=== PATIENT | female | born 1945 | race Caucasian/White ===

== ENCOUNTER 2022-07-10 12:27 | Outpatient (CLI) | payer MEDICARE, BC, SELFPAY | END 2022-07-10 12:28 | disposition home or self-care (01) | LOC: NFLDREF 12:29 | PROVIDERS: PCP Family Medicine; Visit Provider Obstetrics & Gynecology | DX: N89.8 Other specified noninflammatory disorders of vagina (principal) | CPT/HCPCS: 87086 ==

== ENCOUNTER 2022-10-07 18:27 | Emergency (ER) | payer MEDICARE, BC, SELFPAY ==
[2022-10-07 18:42] VITALS: BP 156/64; PULSE 60; RESP 14; TEMP 36.2; O2SAT 93; BMI 33.8
--- NOTE | 2022-10-07 18:54 | CRLHL7_ITS ---
For Patients: As a result of the Cures Act, medical imaging exams and procedure reports are released immediately into your electronic medical record. You may view this report before your referring provider. If you have questions, please contact your health care provider. Indication: Fall with low back pain. Technique: Pelvis 1 views. Comparison: None. Findings: Bones: Alignment is normal. No fractures or bone lesions. No sign of acute injury. Joint spaces: Unremarkable. Soft tissues: Unremarkable. Dictated by Krunal Hanna MD @ 10/07/2022 8:32:45 PM (Electronically Signed)
--- NOTE | 2022-10-07 18:54 | CRLHL7_ITS ---
For Patients: As a result of the Cures Act, medical imaging exams and procedure reports are released immediately into your electronic medical record. You may view this report before your referring provider. If you have questions, please contact your health care provider. Indication: Fall, injury and pain. Technique: Left clavicle 2 views. Comparison: None. Findings/Impression: Bones: Alignment is normal. No fractures or bone lesions. No sign of acute injury. Joint spaces: Unremarkable. Soft tissues: Unremarkable. Dictated by Krunal Hanna MD @ 10/07/2022 8:34:24 PM (Electronically Signed)
--- NOTE | 2022-10-07 18:54 | CRLHL7_ITS ---
For Patients: As a result of the Century Cures Act, medical imaging exams and procedure reports are released immediately into your electronic medical record. You may view this report before your referring provider. If you have questions, please contact your health care provider. INDICATION: Fall with lower back pain. TECHNIQUE: Lumbar spine 3 view. COMPARISON: 10/03/2016. FINDINGS: Bones: Alignment is normal. No fractures or significant bone lesions. No sign of acute injury. Joints: Disc spaces and facets are unremarkable for age. Soft tissues: Unremarkable. Dictated by Krunal Hanna MD @ 10/07/2022 8:30:55 PM (Electronically Signed)
--- NOTE | 2022-10-07 18:55 | CRLHL7_ITS ---
For Patients: As a result of the Century Cures Act, medical imaging exams and procedure reports are released immediately into your electronic medical record. You may view this report before your referring provider. If you have questions, please contact your health care provider. Indication: Neck pain, fall Technique: Volumetric multidetector CT images of the cervical spine were obtained without the administration of IV contrast. Comparison: None available. Findings: The cervical vertebral body heights are grossly maintained. There is anterolisthesis of C2 on C3, C3 on C4 and C4 on C5. There is no displaced fracture or dislocation. There is moderate multilevel degenerative disc disease with disc height loss and marginal osteophyte formation. There is severe facet arthrosis and degenerative change of the atlantoaxial joint. The paraspinous soft tissues are grossly within normal limits. Impression: Moderate degenerative changes of the cervical spine without acute osseous abnormality. Please note that all CT scans at this facility use dose modulation, iterative reconstruction, and/or weight-based dosing when appropriate to reduce radiation dose to as low as reasonably achievable. Dictated by Jorge Landeros MD @ 10/07/2022 8:13:50 PM (Electronically Signed)
--- NOTE | 2022-10-07 18:56 | ED.FALL ---
HPI - Fall General Chief Complaint: Fall/Minor Trauma Stated Complaint: Fell Time Seen by Provider: 10/07/22 18:48 History of Present Illness HPI Narrative: This 77-year-old female comes in by ambulance for evaluation of a fall that occurred just prior to arrival. She was walking out of a store and tripped on her own legs and fell onto her left side and rolled over to her back. She states that she bumped her head but did not have loss of consciousness. She is complaining of pain in the left clavicle region in the left side of her neck. She also has some pain in her low back. She is not on any blood thinners. Related Data Home Medications Medication Instructions Recorded Confirmed acetaminophen 325 mg capsule 325 mg PO ONCE PRN 07/10/22 08/23/22 (Tylenol) atorvastatin 20 mg tablet 20 mg PO 07/10/22 08/23/22 hydrochlorothiazide 25 mg tablet 25 mg PO 07/10/22 08/23/22 ibuprofen 200 mg tablet (Advil) 200 mg PO Q6H PRN 07/10/22 08/23/22 omeprazole 40 mg capsule,delayed 40 mg PO 07/10/22 08/23/22 release Previous Rx's Medication Instructions Recorded clobetasol 0.05 % topical ointment 1 applic topical QHS 4 weeks #15 07/10/22 grams estradiol 0.01% (0.1 mg/gram) 0.5 g vaginal 2XW #42.5 grams 07/31/22 vaginal cream (Estrace) Allergies Allergy/AdvReac Type Severity Reaction Status Date / Time Oxycodone AdvReac Mild Hallucinati Uncoded 08/23/22 10:24 ng Review of Systems Status of ROS: Reports: 10 or more systems reviewed and unremarkable except as noted in History and below Narrative: Constitutional: No fevers, no weight gain or loss. Eyes: No discharge. No vision changes. HENT: No congestion, no sore throat, no ear pain. Cardiovascular: No chest pain, no palpitations. Respiratory: No shortness of breath, no wheezes, no cough. Gastrointestinal: No abdominal pain, no vomiting, no diarrhea. Genitourinary: No dysuria, no hematuria. Musculoskeletal: Pain in the left clavicle and left side of the neck. Pain in the low back. Skin: No rashes, no pruritis. Neurological: No dizziness, weakness, sensory change, speech change. Endo/Heme/Allergies: No bruising or bleeding. No polydipsia. Pysch: no suicidality, no anxiety, no insomnia. All other systems reviewed and are negative. [facility] Medical History (Updated 10/07/22 @ 20:51 by Alexander Dickson MD) High blood cholesterol Osteoarthritis Reflux gastritis Surgical History (Updated 07/13/22 @ 10:09 by Naomi Kim MD) H/O hysterectomy for benign disease Previous section Family History (Updated 07/13/22 @ 10:09 by Naomi Kim MD) Other Colon cancer Heart disease High blood pressure High cholesterol Stroke Social History (Updated 07/13/22 @ 10:10 by Naomi Kim MD) Narrative: She works as an educator. She has a college education. She doesn't exercise regularly, but does some stretching and walking. She doesn't smoke or use recreational drugs. She occasionally drinks alcohol. Smoking Status: Never smoker How often do you have a drink containing alcohol: monthly or less AUDIT-C Alcohol total score: 1 Non-prescribed substance use: denies use Exam Narrative: Exam Narrative: Constitutional: Well-developed, well-nourished, no acute distress. HEENT: Normocephalic, atraumatic. Neck: Normal range of motion. Nontender. Supple. Heart: Regular. No murmurs. Normal rate. Intact distal pulses. Lungs: Clear to auscultation. No chest discomfort. No wheezes, rhonchi, or rales. Abdomen: Normal bowel sounds. Nontender. No rebound tenderness. Genitalia: Deferred. Back: Pain in the right lumbar region. Extremities: No was sign of deformity in the left clavicle. Diffuse tenderness in this area and the left side of her neck. Pain with lateral stress of her pelvis. Skin: Intact. No rash. Warm. No erythema or pallor. Neurologic: No altered sensation. No weakness. Alert and oriented. Psychiatric: No suicidality. No anxiety or depression. No insomnia. Nursing notes and vitals signs are reviewed. Const: Vital Signs, click to edit/add: Vital Signs - 24 hr 10/07/22 18:42 Temperature 97.2 F L Pulse Rate [Pulse Oximeter] 60 Respiratory Rate 14 Blood Pressure [Ri ght Upper Arm] 156/64 H Pulse Oximetry 93 Oxygen Delivery Me thod Room Air Course Vital Signs Vital signs: Initial Vital Signs Temperature 97.2 F L 10/07/22 18:42 Temperature Source Temporal Artery Scan 10/07/22 18:42 Pulse Rate 60 10/07/22 18:42 Pulse Rhythm 10/07/22 18:42 Respiratory Rate 14 10/07/22 18:42 Blood Pressure 156/64 H 10/07/22 18:42 Blood Pressure Mean 94 10/07/22 18:42 Blood Pressure Position Sitting 10/07/22 18:42 Pulse Oximetry 93 10/07/22 18:42 Oxygen Delivery Method 10/07/22 18:42 Vital Signs Temperature 97.2 F L 10/07/22 18:42 Pulse Rate 60 10/07/22 18:42 Respiratory Rate 14 10/07/22 18:42 Blood Pressure 156/64 H 10/07/22 18:42 Pulse Oximetry 93 10/07/22 18:42 Oxygen Delivery Method 10/07/22 18:42 Temperature 97.2 F L 10/07/22 18:42 Pulse Rate 60 10/07/22 18:42 Respiratory Rate 14 10/07/22 18:42 Blood Pressure 156/64 H 10/07/22 18:42 Pulse Oximetry 93 10/07/22 18:42 Oxygen Delivery Method 10/07/22 18:42 MDM - Fall MDM Narrative Medical decision making narrative: This patient comes in for evaluation of injuries from a fall that occurred just prior to arrival. She is complaining of pain in her left clavicle and in her right lumbar and pelvis area. She was offered pain medicine which she declined. She states that when she lays still she feels okay. She did receive Zofran 4 mg for nausea. That helped those symptoms. CT and x-ray imaging return with no acute findings. This was reassuring to the patient. She was able to get up and ambulate and is okay to be discharged home. Imaging Data CT Cervical Spine: Radiologist's impression: Moderate degenerative changes of the cervical spine without acute osseous abnormality. XR L Clavicle: Radiologist's impression: Findings/Impression: Bones: Alignment is normal. No fractures or bone lesions. No sign of acute injury. Joint spaces: Unremarkable. Soft tissues: Unremarkable. XR Lumbar Spine: Radiologist's impression: Bones: Alignment is normal. No fractures or significant bone lesions. No sign of acute injury. Joints: Disc spaces and facets are unremarkable for age. Soft tissues: Unremarkable. XR Pelvis: Radiologist's impression: Bones: Alignment is normal. No fractures or bone lesions. No sign of acute injury. Joint spaces: Unremarkable. Soft tissues: Unremarkable. Discharge Plan Discharge Clinical Impression: Contusion of multiple sites Patient Disposition: Home w/ Parent or Adult Condition: Stable Additional Instructions: Use over the counter medications as needed and indicated. Activity as tolerated. Follow up with MD as needed or return if worsening. Prescriptions: No Action atorvastatin 20 mg tablet 20 mg PO hydrochlorothiazide 25 mg tablet 25 mg PO Label Comments: TAKE 1 TABLET BY MOUTH DAILY omeprazole 40 mg capsule,delayed release(DR/EC) 40 mg PO Label Comments: TAKE 1 CAPSULE BY MOUTH DAILY ibuprofen [Advil] 200 mg tablet 200 mg PO Q6H PRN acetaminophen [Tylenol] 325 mg capsule 325 mg PO ONCE PRN clobetasol 0.05 % ointment 1 applic topical QHS 28 Days Qty: 15 2RF estradiol [Estrace] 0.01 % (0.1 mg/gram) cream 0.5 g vaginal 2XW Qty: 42.5 3RF Rx Instructions: Use nightly for 2 weeks, then twice weekly. May apply with finger. Follow Up/Referrals: Meka Daniel MD [Primary Care Provider] - Stand Alone Forms: [employer] Info Instructions
--- NOTE | 2022-10-07 20:08 | ED.NURSE ---
C-collar removed per Dr. Dickson's request.
[2022-10-07] MEDS: ONDANSETRON ODT 4 MG TAB PO (20:16)
--- NOTE | 2022-10-07 20:30 | ED.NURSE ---
Pt is declining pain meds at this time. Warm blanket provided and lights dimmed for comfort.
[2022-10-07] MEDS: ACETAMINOPHEN 500 MG TABLET 1000 MG PO (21:00)
--- NOTE | 2022-10-07 21:01 | ED.NURSE ---
Pt sitting at edge of bed, now reports pain and is requesting extra strength Tylenol. Med provided, as ordered. Sitting at edge of bed, at bedside.
--- NOTE | 2022-10-07 21:41 | ED.NURSE ---
left to retrieve better vehicle for Pt transport home. Report given to ARTHUR Lima.
--- NOTE | 2022-10-07 22:15 | ED.NURSE ---
Patient reports pain reduced from Tylenol and is able to ambulate and dress independently.
[2022-10-07 22:30] VITALS: BP 156/64; PULSE 60; RESP 14; TEMP 36.2
--- NOTE | 2022-10-08 12:16 | PC.NURSE ---
called and wanted clarification of medications to give what doses and times.
== END 2022-10-07 22:31 | disposition home or self-care (01) ==
PROVIDERS: Emergency Provider Emergency Medicine Emergency Medical Services; PCP Family Medicine
DX: M54.50 Low back pain, unspecified (principal); M54.2 Cervicalgia; W01.0XXA Fall on same level from slipping, tripping and stumbling without subsequent striking against object, initial encounter
CPT/HCPCS: 72100; 72125; 72170; 73000; 99284; A9270

== ENCOUNTER 2022-11-24 07:22 | Outpatient (CLI) | payer MEDICARE, BC, SELFPAY | END 2022-11-24 07:23 | disposition home or self-care (01) | LOC: NFLDREF 11-26 06:43 | PROVIDERS: PCP Family Medicine; Referring Provider Family Medicine; Visit Provider Family Medicine | DX: Z00.00 Encounter for general adult medical examination without abnormal findings (principal); E78.5 Hyperlipidemia, unspecified; I10 Essential (primary) hypertension | CPT/HCPCS: 80053; 80061 ==

== ENCOUNTER 2022-12-11 07:40 | Outpatient (CLI) | payer MEDICARE, BC, SELFPAY | END 2022-12-11 07:41 | disposition home or self-care (01) | LOC: NFLDREF 11:41 | PROVIDERS: PCP Family Medicine; Referring Provider Family Medicine; Visit Provider Family Medicine | DX: I10 Essential (primary) hypertension (principal); R73.03 Prediabetes | CPT/HCPCS: 80048 ==

== ENCOUNTER 2023-01-11 14:01 | Outpatient (CLI) | payer MEDICARE, BC, SELFPAY | END 2023-01-11 14:02 | disposition home or self-care (01) | PROVIDERS: PCP Family Medicine; Referring Provider Family Medicine; Visit Provider Obstetrics & Gynecology | DX: N39.41 Urge incontinence (principal); N90.89 Other specified noninflammatory disorders of vulva and perineum; N90.4 Leukoplakia of vulva; R30.0 Dysuria | CPT/HCPCS: 87086 ==

== ENCOUNTER 2023-05-23 08:35 | Outpatient (CLI) | payer MEDICARE, BC, SELFPAY | END 2023-05-23 08:36 | disposition home or self-care (01) | LOC: NFLDREF 10:43 | PROVIDERS: PCP Family Medicine; Referring Provider Family Medicine; Visit Provider Obstetrics & Gynecology | DX: R30.0 Dysuria (principal); N90.89 Other specified noninflammatory disorders of vulva and perineum; N90.4 Leukoplakia of vulva | CPT/HCPCS: 87086; 87186 ==

== ENCOUNTER 2023-11-27 08:02 | Outpatient (CLI) | payer MEDICARE, BC, SELFPAY | END 2023-11-27 08:03 | disposition home or self-care (01) | LOC: NFLDREF 11-28 07:11 | PROVIDERS: PCP Family Medicine; Referring Provider Family Medicine; Visit Provider Family Medicine | DX: E78.5 Hyperlipidemia, unspecified (principal); R73.03 Prediabetes; Z79.1 Long term (current) use of non-steroidal anti-inflammatories (NSAID) | CPT/HCPCS: 80053; 80061 ==

== ENCOUNTER 2024-10-06 10:41 | Outpatient (CLI) | payer MEDICARE, BC, SELFPAY ==
--- NOTE | 2024-10-06 10:45 | CRLHL7_ITS ---
For Patients: As a result of the Century Cures Act, medical imaging exams and procedure reports are released immediately into your electronic medical record. You may view this report before your referring provider. If you have questions, please contact your health care provider. BILATERAL SCREENING MAMMOGRAM WITH COMPUTER-AIDED DETECTION AND TOMOSYNTHESIS TECHNIQUE: CC and MLO views were obtained. These mammographic images have been obtained using full-field digital technique. These mammographic images were interpreted with the benefit of computer-aided detection. Breast Tomosynthesis was used in this interpretation. COMPARISON FILM: 01/30/23, 08/08/21, 07/26/20. FINDINGS: The breasts are almost entirely fatty. IMPRESSION: There is no radiographic evidence for malignancy. ASSESSMENT: BI-RADS Category 2: Benign RECOMMENDATION: Routine screening mammogram in 1 year. A lay language report of this examination will be provided to the patient. Brenton Luna M.D. Diagnostic/Nuclear Medicine Radiologist [email or web address] SP/Dictated by: Brenton Luna MD @ 10/08/2024 12:06:00 PM (Electronically Signed)
== END 2024-10-06 10:42 | disposition home or self-care (01) ==
LOC: MAMMO 10:41
PROVIDERS: PCP Family Medicine; Visit Provider Family Medicine
DX: Z12.31 Encounter for screening mammogram for malignant neoplasm of breast (principal)
CPT/HCPCS: 77063; 77067

== ENCOUNTER 2024-12-01 08:05 | Outpatient (CLI) | payer MEDICARE, BC, SELFPAY | END 2024-12-01 08:06 | disposition home or self-care (01) | LOC: NFLDREF 12-02 03:36 | PROVIDERS: PCP Family Medicine; Referring Provider Family Medicine; Visit Provider Family Medicine | DX: E78.5 Hyperlipidemia, unspecified (principal); I10 Essential (primary) hypertension; E55.9 Vitamin D deficiency, unspecified; M81.0 Age-related osteoporosis without current pathological fracture | CPT/HCPCS: 80053; 80061; 82306 ==